=== PATIENT | male | born 1990 | race American Indian/Alaskan Native ===

== ENCOUNTER 2021-02-22 12:44 | Emergency (ER) | payer OTHER ==
[2021-02-22] MEDS ORDERED: LORazepam 2 MG/ML SDV IVPUSH ONE (13:02)
[2021-02-22] MEDS ORDERED: Ondansetron 4 MG/2 ML SDV IVPUSH ONE (13:02)
[2021-02-22] MEDS ORDERED: Sodium Chloride 0.9% 1,000 ML IV SCH (13:15)
--- NOTE | 2021-02-22 14:14 | EDM.PDOC ---
ED HPI GENERAL MEDICAL PROBLEM - General Stated Complaint: POSS HEART ATTACK Time Seen by Provider: 02/22/21 12:50 Source of Information: Reports: Patient History Limitations: Reports: No Limitations - History of Present Illness INITIAL COMMENTS - FREE TEXT/NARRATIVE: Patient presented to the ED because of chest pain, dyspnea,nausea and vomiting since yesterday. He also c/o elvin oral and peripheral numbness and tingling because he was hyperventilating earlier. There is no fever, chills, cough and cold. He has a history of alcohol abuse and has binge drinking 1 liter of hard liquor daily. He also has a history of anxiety and depression but quit taking his buspar and alprazolam. - Related Data Allergies Allergy/AdvReac Type Severity Reaction Status Date / Time No Known Allergies Allergy Verified 02/22/21 12:59 Home Meds: Home Meds Ondansetron [Zofran ODT] 4 mg PO Q4H PRN #10 tab.dis 02/22/21 [Rx] diazePAM [Valium] 10 mg PO DAILY PRN #10 tab 02/22/21 [Rx] ED ROS GENERAL - Review of Systems Review Of Systems: See Below Constitutional: Reports: No Symptoms HEENT: Reports: No Symptoms Respiratory: Reports: Shortness of Breath Cardiovascular: Reports: No Symptoms Endocrine: Reports: No Symptoms GI/Abdominal: Reports: Nausea, Vomiting : Reports: No Symptoms Musculoskeletal: Reports: No Symptoms Skin: Reports: No Symptoms Neurological: Reports: No Symptoms Psychiatric: Reports: No Symptoms ED EXAM, GENERAL - Physical Exam Exam: See Below Exam Limited By: No Limitations General Appearance: Alert, No Apparent Distress Ears: Normal External Exam, Normal Canal, Hearing Grossly Normal, Normal TMs Nose: Normal Inspection, Normal Mucosa, No Blood Throat/Mouth: Normal Inspection, Normal Lips, Normal Teeth, Normal Oropharynx, Normal Voice Head: Atraumatic, Normocephalic Neck: Normal Inspection, Supple, Non-Tender, Full Range of Motion Respiratory/Chest: No Respiratory Distress, Lungs Clear, Normal Breath Sounds, No Accessory Muscle Use, Chest Non-Tender Cardiovascular: Normal Peripheral Pulses, Regular Rate, Rhythm, No Edema, No Gallop, No JVD, No Murmur, No Rub GI/Abdominal: Normal Bowel Sounds, Soft, Non-Tender, No Organomegaly, No Distention, No Abnormal Bruit, No Mass Back Exam: Normal Inspection, Full Range of Motion Extremities: Normal Inspection, Normal Range of Motion, Non-Tender, No Pedal Edema, Normal Capillary Refill Neurological: Alert, Oriented, CN II-XII Intact, Normal Cognition, Normal Gait, No Motor/Sensory Deficits #1 Interpretation EKG Date: 02/22/21 Time: 12:44 Rhythm: Other (sinus tach) Rate (Beats/Min): 117 [place]: Normal P-Wave: Present QRS: Normal ST-T: Normal QT: Normal OR/PQ Interval: 116 Comparison: NA - No Prior EKG EKG Interpretation Comments: Sinus Tach Course - Vital Signs Text/Narrative:: Lab/EKG/CXR result was reviewed and discussed with patient Zofran 4 mg IV x 1 Ativan 1 mg IV x 1 Patient refused to go foe detox, he said he has a son to take care Last Recorded V/S: Last Vital Signs Temp 36.8 C 02/22/21 12:44 Pulse 112 H 02/22/21 12:44 Resp 18 02/22/21 12:44 BP 143/96 H 02/22/21 12:44 Pulse Ox 98 02/22/21 12:44 - Orders/Labs/Meds Orders: Active Orders 24 hr Category Date Time Status Chest 1V Frontal [CR] Stat Exams 02/22/21 13:02 Taken EKG 12 Lead [EK] Routine Ther 02/22/21 13:02 Ordered Labs: Laboratory Tests 02/22/21 02/22/21 02/22/21 Range/Units 13:00 13:00 13:00 WBC 8.2 (3.2-10.1) x10-3/uL RBC 5.84 (3.90-5.90) x10(6)uL Hgb 16.2 (12.9-17.7) g/dL Hct 49.7 (38.3-50.1) % MCV 85.1 (80.8-98.7) fL MCH 27.8 (27.0-33.3) pg MCHC 32.7 (28.7-35.3) g/dL RDW 16.5 H (12.4-15.0) % Plt Count 337 (117-477) x10(3)uL MPV 7.8 (6.7-11.0) fL Neut % (Auto) 56.9 (40.3-71.8) % Lymph % (Auto) 34.2 (15.8-45.3) % Mitchell % (Auto) 4.3 L (5.5-15.2) % Eos % (Auto) 3.5 (0.1-6.8) % Baso % (Auto) 1.1 (0.3-3.8) % Neut # (Auto) 4.6 (1.7-6.9) x10-3/uL Lymph # (Auto) 2.8 (0.5-4.5) x10-3/uL Mitchell # (Auto) 0.4 (0.0-1.2) x10-3/uL Eos # (Auto) 0.3 (0.0-0.6) x10-3/uL Baso # (Auto) 0.1 (0.0-0.3) x10-3/uL Sodium 137 (135-145) mmol/L Potassium 4.3 (3.5-5.3) mmol/L Chloride 99 L (100-110) mmol/L Carbon Dioxide 25 (21-32) mmol/L BUN 16 (7-18) mg/dL Creatinine 1.1 (0.70-1.30) mg/dL Est Cr Clr Drug Dosing TNP Estimated GFR (MDRD) > 60 (>60) BUN/Creatinine Ratio 14.5 (9-20) Glucose 106 (80-116) mg/dL Calcium 8.4 L (8.6-10.2) mg/dL Total Bilirubin 1.1 (0.1-1.3) mg/dL AST 40 H (5-25) IU/L ALT 29 (12-36) U/L Alkaline Phosphatase 106 (56-112) IU/L Troponin I 11.3 (4.0-60.3) pg/mL Total Protein 8.1 H (6.0-8.0) g/dL Albumin 3.8 (3.5-5.2) g/dL Globulin 4.3 g/dL Albumin/Globulin Ratio 0.9 Urine Opiates Screen (NEGATIVE) Ur Buprenorphine Scrn (NEGATIVE) Ur Oxycodone Screen (NEGATIVE) Urine Methadone Screen (NEGATIVE) Ur Propoxyphene Screen (NEGATIVE) Ur Barbiturates Screen (NEGATIVE) Ur Tricyclics Screen (NEGATIVE) Ur Phencyclidine Scrn (NEGATIVE) Ur Amphetamine Screen (NEGATIVE) U Methamphetamines Scrn (NEGATIVE) U Benzodiazepines Scrn (NEGATIVE) U Cocaine Metab Screen (NEGATIVE) U Marijuana (THC) Screen (NEGATIVE) Ethyl Alcohol 0.23 H* (<0.03) % 02/22/21 Range/Units 14:40 WBC (3.2-10.1) x10-3/uL RBC (3.90-5.90) x10(6)uL Hgb (12.9-17.7) g/dL Hct (38.3-50.1) % MCV (80.8-98.7) fL MCH (27.0-33.3) pg MCHC (28.7-35.3) g/dL RDW (12.4-15.0) % Plt Count (117-477) x10(3)uL MPV (6.7-11.0) fL Neut % (Auto) (40.3-71.8) % Lymph % (Auto) (15.8-45.3) % Mitchell % (Auto) (5.5-15.2) % Eos % (Auto) (0.1-6.8) % Baso % (Auto) (0.3-3.8) % Neut # (Auto) (1.7-6.9) x10-3/uL Lymph # (Auto) (0.5-4.5) x10-3/uL Mitchell # (Auto) (0.0-1.2) x10-3/uL Eos # (Auto) (0.0-0.6) x10-3/uL Baso # (Auto) (0.0-0.3) x10-3/uL Sodium (135-145) mmol/L Potassium (3.5-5.3) mmol/L Chloride (100-110) mmol/L Carbon Dioxide (21-32) mmol/L BUN (7-18) mg/dL Creatinine (0.70-1.30) mg/dL Est Cr Clr Drug Dosing Estimated GFR (MDRD) (>60) BUN/Creatinine Ratio (9-20) Glucose (80-116) mg/dL Calcium (8.6-10.2) mg/dL Total Bilirubin (0.1-1.3) mg/dL AST (5-25) IU/L ALT (12-36) U/L Alkaline Phosphatase (56-112) IU/L Troponin I (4.0-60.3) pg/mL Total Protein (6.0-8.0) g/dL Albumin (3.5-5.2) g/dL Globulin g/dL Albumin/Globulin Ratio Urine Opiates Screen Positive H (NEGATIVE) Ur Buprenorphine Scrn Negative (NEGATIVE) Ur Oxycodone Screen Negative (NEGATIVE) Urine Methadone Screen Negative (NEGATIVE) Ur Propoxyphene Screen Negative (NEGATIVE) Ur Barbiturates Screen Negative (NEGATIVE) Ur Tricyclics Screen Negative (NEGATIVE) Ur Phencyclidine Scrn Negative (NEGATIVE) Ur Amphetamine Screen Negative (NEGATIVE) U Methamphetamines Scrn Positive H (NEGATIVE) U Benzodiazepines Scrn Negative (NEGATIVE) U Cocaine Metab Screen Negative (NEGATIVE) U Marijuana (THC) Screen Negative (NEGATIVE) Ethyl Alcohol (<0.03) % Meds: Medications Discontinued Medications Generic Name Dose Route Start Last Admin Trade Name Freq PRN Reason Stop Dose Admin Sodium Chloride 1,000 mls @ 999 mls/hr 02/22/21 13:15 02/22/21 13:10 Normal Saline IV 999 mls/hr ASDIRECTED LINA Administration Lorazepam 1 mg 02/22/21 13:02 02/22/21 13:14 Lorazepam 2 Mg/Ml Sdv IVPUSH 02/22/21 13:03 1 mg ONETIME ONE Administration Ondansetron HCl 4 mg 02/22/21 13:02 02/22/21 13:14 Ondansetron 4 Mg/2 Ml Sdv IVPUSH 02/22/21 13:03 4 mg ONETIME ONE Administration Departure - Departure Time of Disposition: 14:15 Disposition: Home, Self-Care 01 Condition: Good Clinical Impression: Alcohol intoxication, Alcohol abuse, Polysubstance abuse - Discharge Information Prescriptions: diazePAM [Valium] 10 mg PO DAILY PRN #10 tab PRN Reason: anxiety/agitation Ondansetron [Zofran ODT] 4 mg PO Q4H PRN #10 tab.dis PRN Reason: Nausea Instructions: Alcohol Use Disorder, Alcohol Intoxication, [id number] Referrals: PCP,Not In Area [Primary Care Provider] - Forms: ED Department Discharge Additional Instructions: Please read discharge instructions on alcohol abuse and alcohol intoxication Drink in moderation Take 1 multivitamin daily Take valium 10 mg when you feel like withdrawing: if you're anxious, agitated, having nausea, vomiting, hallucination Zofran 4mg ODT ever 4 hours as needed for nausea You can go directly to [facility]: [address], [place] Sepsis Event Note (ED) - Evaluation Sepsis Screening Result: No Definite Risk - Focused Exam Vital Signs: Vital Signs Temp Pulse Resp BP Pulse Ox 02/22/21 12:44 36.8 C 112 H 18 143/96 H 98 - My Orders Last 24 Hours: My Active Orders 02/22/21 13:02 Chest 1V Frontal [CR] Stat EKG 12 Lead [EK] Routine - Assessment/Plan Last 24 Hours: My Active Orders 02/22/21 13:02 Chest 1V Frontal [CR] Stat EKG 12 Lead [EK] Routine
--- NOTE | 2021-02-23 12:46 | CR ---
CHEST ONE VIEW INDICATION: Shortness of breath. FINDINGS: Two AP portable upright views of the chest were obtained 02/22/21 - no comparisons. Overlying EKG leads are noted. Heart did not appear enlarged. Moderate dextroconvex scoliosis of the mid thoracic spine is noted. A definite active infiltrate or effusion was not identified. IMPRESSION: No acute process. MTDD
== END 2021-02-22 14:40 | disposition home or self-care (01) ==
LOC: FB.ED 12:44
DX: F10.129 Alcohol abuse with intoxication, unspecified (principal); R00.0 Tachycardia, unspecified; Y90.0 Blood alcohol level of less than 20 mg/100 ml
CPT/HCPCS: 36415; 71045; 80053; 80307; 84484; 85025; 93005; 96374; 96375; 99285; J2060; J2405; J7030

== ENCOUNTER 2021-02-25 00:48 | Emergency (ER) | payer OTHER ==
[2021-02-25] MEDS: Diazepam 5 MG Tab PO STA (01:22)
--- NOTE | 2021-02-25 01:48 | EDM.PDOCBH ---
ED HPI GENERAL MEDICAL PROBLEM - General Stated Complaint: ANXITEY Time Seen by Provider: 02/25/21 00:55 Source of Information: Reports: Patient History Limitations: Reports: No Limitations - History of Present Illness INITIAL COMMENTS - FREE TEXT/NARRATIVE: Patient presented to the ED because of alcohol intoxication. He was drinking all night because he found out that his missing sister in [place] was found . He was seen a day ago due to alcohol intoxication and his drug screen was positive fo meth,opiates and THC. He was advised to go to detox which he refused because he has to take care of his son. He arrived in the ED AAO X3 with GCS of 15. - Related Data Allergies Allergy/AdvReac Type Severity Reaction Status Date / Time No Known Allergies Allergy Verified 02/22/21 12:59 Home Meds: Home Meds Ondansetron [Zofran ODT] 4 mg PO Q4H PRN #10 tab.dis 02/22/21 [Rx] diazePAM [Valium] 10 mg PO DAILY PRN #10 tab 02/22/21 [Rx] hydrOXYzine pamoate [Vistaril] 50 mg PO Q6H PRN #30 cap 02/25/21 [Rx] Past Medical History Psychiatric History: Reports: Addiction - Infectious Disease History Infectious Disease History: Reports: None Social & Family History - Family History Family Medical History: No Pertinent Family History - Caffeine Use Caffeine Use: Reports: Soda ED ROS GENERAL - Review of Systems Review Of Systems: See Below Constitutional: Reports: No Symptoms HEENT: Reports: No Symptoms Respiratory: Reports: No Symptoms Cardiovascular: Reports: No Symptoms Endocrine: Reports: No Symptoms GI/Abdominal: Reports: No Symptoms : Reports: No Symptoms Musculoskeletal: Reports: No Symptoms Skin: Reports: No Symptoms Neurological: Reports: No Symptoms Psychiatric: Reports: Anxiety ED EXAM, BEHAVIORAL HEALTH - Physical Exam Exam: See Below Exam Limited By: No Limitations General Appearance: Alert, No Apparent Distress Ears: Normal External Exam, Normal Canal, Hearing Grossly Normal, Normal TMs Nose: Normal Inspection, Normal Mucosa, No Blood Throat/Mouth: Normal Inspection, Normal Lips, Normal Teeth, Normal Gums, Normal Oropharynx, Normal Voice Head: Atraumatic, Normocephalic Neck: Normal Inspection, Supple, Non-Tender, Full Range of Motion Respiratory/Chest: No Respiratory Distress, Lungs Clear, Normal Breath Sounds, No Accessory Muscle Use, Chest Non-Tender Cardiovascular: Normal Peripheral Pulses, Regular Rate, Rhythm, No Edema, No Gallop, No JVD, No Murmur, No Rub GI/Abdominal: Normal Bowel Sounds, Soft, Non-Tender, No Organomegaly, No Distention, No Abnormal Bruit Back Exam: Normal Inspection, Full Range of Motion Extremities: Normal Inspection, Normal Range of Motion, Non-Tender, No Pedal Edema, Normal Capillary Refill Neurological: Alert, Normal Mood/Affect, CN II-XII Intact, Normal Cognition, Normal Gait, Normal Reflexes, No Motor/Sensory Deficits COURSE, BEHAVIORAL HEALTH COMP - Course Vital Signs: Valium 10 mg PO x1 for his anxiety Lab work up was not done Orders, Labs, Meds: Medications Discontinued Medications Generic Name Dose Route Start Last Admin Trade Name Freq PRN Reason Stop Dose Admin Diazepam 10 mg 02/25/21 01:16 02/25/21 01:22 Diazepam 5 Mg Tab PO 02/25/21 01:17 10 mg NOW STA Administration Departure - Departure Time of Disposition: 01:45 Disposition: Home, Self-Care 01 Condition: Good Clinical Impression: Alcohol intoxication, Polysubstance abuse, Alcohol abuse, Grieving - Discharge Information Prescriptions: hydrOXYzine pamoate [Vistaril] 50 mg PO Q6H PRN #30 cap PRN Reason: anxiety/sleep Instructions: Alcohol Use Disorder, Substance Use Disorder, Alcohol Intoxication, [id number], Helping Your Child Manage Loss Referrals: PCP,Not In Area [Primary Care Provider] - Additional Instructions: Please read discharge instructions in grieving Take vistaril 50 mg every 6 hours as needed for anxiety/sleep Follow up as needed
== END 2021-02-25 01:50 | disposition home or self-care (01) ==
LOC: FB.ED 00:48
DX: F10.129 Alcohol abuse with intoxication, unspecified (principal); F43.21 Adjustment disorder with depressed mood; F19.10 Other psychoactive substance abuse, uncomplicated
CPT/HCPCS: 99284; A9270

== ENCOUNTER 2021-03-11 16:33 | Emergency (ER) | payer OTHER ==
[2021-03-11] MEDS ORDERED: Sodium Chloride 0.9% 10 ML Syringe FLUSH PRN (16:35)
[2021-03-11] MEDS ORDERED: Prochlorperazine 10 MG in Sodium Chloride 0.9% 50 ML IV STA (16:35)
[2021-03-11] MEDS ORDERED: LORazepam 2 MG/ML SDV IVPUSH STA (16:35)
[2021-03-11] MEDS ORDERED: Sodium Chloride 0.9% 1,000 ML IV SCH ×2 (16:45→18:15)
--- NOTE | 2021-03-11 18:02 | EDM.PDOC ---
ED HPI GENERAL MEDICAL PROBLEM - General Chief Complaint: Drug or Alcohol Abuse Stated Complaint: Nausea and vomiting Time Seen by Provider: 03/11/21 16:35 Source of Information: Reports: Patient History Limitations: Reports: No Limitations - History of Present Illness INITIAL COMMENTS - FREE TEXT/NARRATIVE: Patient is a 30 YO M who presented to the ED because of persistent nausea and vomiting. He has been drinking hard liquor since 02/26/21 when he find out that his sister in [place]. He also has a history of Meth and Marijuana use. Today he is anxious, agitated, and is persistently vomiting. There is no abdominal pain,no fever, chills, cough and cold. His last drink was this morning and he denies having any seizure or DT' related to alcohol intoxication or withdrawal. Headache Pain Score (Numeric/FACES): 2 - Related Data Allergies Allergy/AdvReac Type Severity Reaction Status Date / Time No Known Allergies Allergy Verified 03/11/21 19:15 Home Meds: Home Meds Ondansetron [Zofran ODT] 4 mg PO Q4H PRN #10 tab.dis 02/22/21 [Rx] diazePAM [Valium] 10 mg PO DAILY PRN #10 tab 02/22/21 [Rx] hydrOXYzine pamoate [Vistaril] 50 mg PO Q6H PRN #30 cap 02/25/21 [Rx] .Buspar 1 dose PO ASDIRECTED 03/11/21 [History] .Lorazepam 1 dose PO ASDIRECTED 03/11/21 [History] Prochlorperazine Maleate [Compazine] 10 mg PO Q8H PRN #30 tablet 03/12/21 [Rx] diazePAM [Valium] 10 mg PO Q8H PRN #10 tablet 03/12/21 [Rx] Past Medical History Psychiatric History: Reports: Addiction, Anxiety - Infectious Disease History Infectious Disease History: Reports: None Social & Family History - Family History Family Medical History: No Pertinent Family History - Caffeine Use Caffeine Use: Reports: Energy Drinks, Soda ED ROS GENERAL - Review of Systems Review Of Systems: See Below Constitutional: Reports: No Symptoms HEENT: Reports: No Symptoms Respiratory: Reports: No Symptoms Cardiovascular: Reports: No Symptoms Endocrine: Reports: No Symptoms GI/Abdominal: Reports: Nausea, Vomiting : Reports: No Symptoms Musculoskeletal: Reports: No Symptoms Skin: Reports: No Symptoms Neurological: Reports: No Symptoms Psychiatric: Reports: No Symptoms Hematologic/Lymphatic: Reports: No Symptoms ED EXAM, GENERAL - Physical Exam Exam: See Below Exam Limited By: No Limitations General Appearance: Alert, No Apparent Distress Eye Exam: Bilateral Eye: PERRL Ears: Normal External Exam, Normal Canal Nose: Normal Inspection, Normal Mucosa, No Blood Throat/Mouth: Normal Inspection, Normal Lips, Normal Teeth Head: Atraumatic, Normocephalic Neck: Normal Inspection, Supple, Non-Tender, Full Range of Motion Respiratory/Chest: No Respiratory Distress, Lungs Clear, Normal Breath Sounds, No Accessory Muscle Use, Chest Non-Tender Cardiovascular: Normal Peripheral Pulses, Regular Rate, Rhythm, No Edema, No Gallop, No JVD, No Murmur GI/Abdominal: Normal Bowel Sounds, Soft, Non-Tender, No Organomegaly, No Distention, No Abnormal Bruit Back Exam: Normal Inspection, Full Range of Motion Extremities: Normal Inspection, Normal Range of Motion, Non-Tender, No Pedal Edema, Normal Capillary Refill Neurological: Alert, Oriented, CN II-XII Intact, Normal Cognition, Normal Reflexes Psychiatric: Normal Affect Course - Vital Signs Text/Narrative:: Lab/CXR result was reviewed and discussed with patient NS 1 L bolus CIWA Protocol Mr Zheng chsnged his decisin to go to detox and just want to go home Last Recorded V/S: Last Vital Signs Temp 37.4 C 03/12/21 01:00 Pulse 105 H 03/12/21 01:00 Resp 20 03/12/21 01:00 BP 137/91 H 03/12/21 01:00 Pulse Ox 99 03/12/21 01:00 - Orders/Labs/Meds Orders: Active Orders 24 hr Category Date Time Status Chest 1V Frontal [CR] Stat Exams 03/11/21 17:00 Taken LORazepam [Ativan] Med 03/12/21 01:15 Active See Protocol IV ASDIRECTED Prochlorperazine [Compazine] Med 03/12/21 01:09 Active 10 mg IVPUSH Q6H PRN Sodium Chloride 0.9% [Normal Saline] 1,000 ml Med 03/11/21 16:45 Active IV ASDIRECTED Sodium Chloride 0.9% [Normal Saline] 1,000 ml Med 03/11/21 18:15 Active IV ASDIRECTED Sodium Chloride 0.9% [Saline Flush] Med 03/11/21 16:35 Active 10 ml FLUSH ASDIRECTED PRN Saline Lock Insert [OM.PC] Routine Oth 03/11/21 16:35 Ordered Medication Orders Sodium Chloride (Normal Saline) 1,000 mls @ 999 mls/hr IV ASDIRECTED LINA Last Admin: 03/11/21 16:50 Dose: 999 mls/hr Documented by: RUBENSNLLACIE Sodium Chloride (Normal Saline) 1,000 mls @ 999 mls/hr IV ASDIRECTED LINA Last Admin: 03/11/21 18:36 Dose: 999 mls/hr Documented by: HUMBERTO Lorazepam (Lorazepam 2 Mg/Ml Sdv) 0 mg IV ASDIRECTED LINA; Protocol Last Admin: 03/12/21 01:25 Dose: 1 mg Documented by: BIANKA Prochlorperazine Edisylate (Prochlorperazine 10 Mg/2 Ml Sdv) 10 mg IVPUSH Q6H PRN PRN Reason: Nausea/Vomiting Last Admin: 03/12/21 01:19 Dose: 10 mg Documented by: BIANKA Sodium Chloride (Sodium Chloride 0.9% 10 Ml Syringe) 10 ml FLUSH ASDIRECTED PRN PRN Reason: Keep Vein Open Last Admin: 03/12/21 01:26 Dose: 10 ml Documented by: BIANKA Labs: Laboratory Tests 03/11/21 03/11/21 03/11/21 Range/Units 16:45 16:45 16:45 WBC 5.7 (3.2-10.1) x10-3/uL RBC 5.17 (3.90-5.90) x10(6)uL Hgb 15.1 (12.9-17.7) g/dL Hct 45.6 (38.3-50.1) % MCV 88.2 (80.8-98.7) fL MCH 29.3 (27.0-33.3) pg MCHC 33.2 (28.7-35.3) g/dL RDW 20.1 H (12.4-15.0) % Plt Count 282 (117-477) x10(3)uL MPV 7.7 (6.7-11.0) fL Neut % (Auto) 59.4 (40.3-71.8) % Lymph % (Auto) 28.3 (15.8-45.3) % [place] % (Auto) 6.1 (5.5-15.2) % Eos % (Auto) 5.4 (0.1-6.8) % Baso % (Auto) 0.8 (0.3-3.8) % Neut # (Auto) 3.4 (1.7-6.9) x10-3/uL Lymph # (Auto) 1.6 (0.5-4.5) x10-3/uL [place] # (Auto) 0.4 (0.0-1.2) x10-3/uL Eos # (Auto) 0.3 (0.0-0.6) x10-3/uL Baso # (Auto) 0.0 (0.0-0.3) x10-3/uL Sodium 144 (135-145) mmol/L Potassium 4.1 (3.5-5.3) mmol/L Chloride 105 D (100-110) mmol/L Carbon Dioxide 24 (21-32) mmol/L BUN 19 H (7-18) mg/dL Creatinine 1.0 (0.70-1.30) mg/dL Est Cr Clr Drug Dosing TNP Estimated GFR (MDRD) > 60 (>60) BUN/Creatinine Ratio 19.0 (9-20) Glucose 105 (80-116) mg/dL Calcium 8.2 L (8.6-10.2) mg/dL Total Bilirubin 1.0 (0.1-1.3) mg/dL AST 66 H D (5-25) IU/L ALT 43 H D (12-36) U/L Alkaline Phosphatase 78 (56-112) IU/L Total Protein 7.8 (6.0-8.0) g/dL Albumin 3.8 (3.5-5.2) g/dL Globulin 4.0 g/dL Albumin/Globulin Ratio 1.0 Amylase 152 H (25-115) U/L Lipase 747 H (73-393) U/L Urine Opiates Screen (NEGATIVE) Ur Buprenorphine Scrn (NEGATIVE) Ur Oxycodone Screen (NEGATIVE) Urine Methadone Screen (NEGATIVE) Ur Propoxyphene Screen (NEGATIVE) Ur Barbiturates Screen (NEGATIVE) Ur Tricyclics Screen (NEGATIVE) Ur Phencyclidine Scrn (NEGATIVE) Ur Amphetamine Screen (NEGATIVE) U Methamphetamines Scrn (NEGATIVE) U Benzodiazepines Scrn (NEGATIVE) U Cocaine Metab Screen (NEGATIVE) U Marijuana (THC) Screen (NEGATIVE) Ethyl Alcohol 0.26 H* (<0.03) % SARS-CoV-2 RNA (CASS) (NEGATIVE) 03/11/21 03/11/21 Range/Units 17:10 18:00 WBC (3.2-10.1) x10-3/uL RBC (3.90-5.90) x10(6)uL Hgb (12.9-17.7) g/dL Hct (38.3-50.1) % MCV (80.8-98.7) fL MCH (27.0-33.3) pg MCHC (28.7-35.3) g/dL RDW (12.4-15.0) % Plt Count (117-477) x10(3)uL MPV (6.7-11.0) fL Neut % (Auto) (40.3-71.8) % Lymph % (Auto) (15.8-45.3) % [place] % (Auto) (5.5-15.2) % Eos % (Auto) (0.1-6.8) % Baso % (Auto) (0.3-3.8) % Neut # (Auto) (1.7-6.9) x10-3/uL Lymph # (Auto) (0.5-4.5) x10-3/uL [place] # (Auto) (0.0-1.2) x10-3/uL Eos # (Auto) (0.0-0.6) x10-3/uL Baso # (Auto) (0.0-0.3) x10-3/uL Sodium (135-145) mmol/L Potassium (3.5-5.3) mmol/L Chloride (100-110) mmol/L Carbon Dioxide (21-32) mmol/L BUN (7-18) mg/dL Creatinine (0.70-1.30) mg/dL Est Cr Clr Drug Dosing Estimated GFR (MDRD) (>60) BUN/Creatinine Ratio (9-20) Glucose (80-116) mg/dL Calcium (8.6-10.2) mg/dL Total Bilirubin (0.1-1.3) mg/dL AST (5-25) IU/L ALT (12-36) U/L Alkaline Phosphatase (56-112) IU/L Total Protein (6.0-8.0) g/dL Albumin (3.5-5.2) g/dL Globulin g/dL Albumin/Globulin Ratio Amylase (25-115) U/L Lipase (73-393) U/L Urine Opiates Screen Negative (NEGATIVE) Ur Buprenorphine Scrn Negative (NEGATIVE) Ur Oxycodone Screen Negative (NEGATIVE) Urine Methadone Screen Negative (NEGATIVE) Ur Propoxyphene Screen Negative (NEGATIVE) Ur Barbiturates Screen Negative (NEGATIVE) Ur Tricyclics Screen Negative (NEGATIVE) Ur Phencyclidine Scrn Negative (NEGATIVE) Ur Amphetamine Screen Negative (NEGATIVE) U Methamphetamines Scrn Negative (NEGATIVE) U Benzodiazepines Scrn Positive H (NEGATIVE) U Cocaine Metab Screen Negative (NEGATIVE) U Marijuana (THC) Screen Positive H (NEGATIVE) Ethyl Alcohol (<0.03) % SARS-CoV-2 RNA (CASS) Negative (NEGATIVE) Meds: Medications Generic Name Dose Route Start Last Admin Trade Name Freq PRN Reason Stop Dose Admin Sodium Chloride 1,000 mls @ 999 mls/hr 03/11/21 16:45 03/11/21 16:50 Normal Saline IV 999 mls/hr ASDIRECTED LINA Administration Sodium Chloride 1,000 mls @ 999 mls/hr 03/11/21 18:15 03/11/21 18:36 Normal Saline IV 999 mls/hr ASDIRECTED LINA Administration Lorazepam 0 mg 03/12/21 01:15 03/12/21 01:25 Lorazepam 2 Mg/Ml Sdv IV 1 mg ASDIRECTED LINA Administration Protocol Prochlorperazine Edisylate 10 mg 03/12/21 01:09 03/12/21 01:19 Prochlorperazine 10 Mg/2 Ml Sdv IVPUSH 10 mg Q6H PRN Administration Nausea/Vomiting Sodium Chloride 10 ml 03/11/21 16:35 03/12/21 01:26 Sodium Chloride 0.9% 10 Ml Syringe FLUSH 10 ml ASDIRECTED PRN Administration Keep Vein Open Discontinued Medications Generic Name Dose Route Start Last Admin Trade Name Freq PRN Reason Stop Dose Admin Prochlorperazine Edisylate 10 52 mls @ 150 mls/hr 03/11/21 16:35 03/11/21 17:04 mg/ Sodium Chloride IV 03/11/21 16:55 150 mls/hr NOW STA Administration Thiamine HCl 100 mg/ Sodium 101 mls @ 202 mls/hr 03/11/21 18:03 03/11/21 18:07 Chloride IV 03/11/21 18:04 202 mls/hr ONETIME ONE Administration Lorazepam 2 mg 03/11/21 16:35 03/11/21 17:01 Lorazepam 2 Mg/Ml Sdv IVPUSH 03/11/21 16:36 2 mg NOW STA Administration Lorazepam Confirm 03/12/21 12:05 03/12/21 12:07 Lorazepam 1 Mg Tab Administered 03/12/21 12:06 Not Given Dose 1 mg .ROUTE .STK-MED ONE Lorazepam 1 mg 03/12/21 12:06 03/12/21 12:07 Lorazepam 1 Mg Tab PO 03/12/21 12:07 1 mg ONETIME ONE Administration Departure - Departure Time of Disposition: 18:00 Disposition: Home, Self-Care 01 Condition: Good Clinical Impression: Alcoholism, Alcohol intoxication, Polysubstance abuse, Alcohol withdrawal - Discharge Information Prescriptions: Prochlorperazine Maleate [Compazine] 10 mg PO Q8H PRN #30 tablet PRN Reason: Nausea diazePAM [Valium] 10 mg PO Q8H PRN #10 tablet PRN Reason: anxiety/agitation Instructions: Alcohol Use Disorder, Alcohol Withdrawal Syndrome, Substance Use Disorder Referrals: PCP,Not In Area [Primary Care Provider] - Forms: ED Department Discharge Additional Instructions: Please read discharge instructions on alcohol and substance abuse disorder Drink in moderation Quit using street drugs Valium 10 mg every 8 hours as needed when you can't control you anxiety and agitation Compazine 10 mg every 8 hours as needed for nausea/vomiting Follow up with your doctor for an outpatient treatment. - My Orders Last 24 Hours: My Active Orders 03/11/21 16:35 Sodium Chloride 0.9% [Saline Flush] 10 ml FLUSH ASDIRECTED PRN Saline Lock Insert [OM.PC] Routine 03/11/21 16:45 Sodium Chloride 0.9% [Normal Saline] 1,000 ml IV ASDIRECTED 03/11/21 17:00 Chest 1V Frontal [CR] Stat 03/11/21 18:15 Sodium Chloride 0.9% [Normal Saline] 1,000 ml IV ASDIRECTED 03/12/21 01:09 Prochlorperazine [Compazine] 10 mg IVPUSH Q6H PRN 03/12/21 01:15 LORazepam [Ativan] See Protocol IV ASDIRECTED - Assessment/Plan Last 24 Hours: My Active Orders 03/11/21 16:35 Sodium Chloride 0.9% [Saline Flush] 10 ml FLUSH ASDIRECTED PRN Saline Lock Insert [OM.PC] Routine 03/11/21 16:45 Sodium Chloride 0.9% [Normal Saline] 1,000 ml IV ASDIRECTED 03/11/21 17:00 Chest 1V Frontal [CR] Stat 03/11/21 18:15 Sodium Chloride 0.9% [Normal Saline] 1,000 ml IV ASDIRECTED 03/12/21 01:09 Prochlorperazine [Compazine] 10 mg IVPUSH Q6H PRN 03/12/21 01:15 LORazepam [Ativan] See Protocol IV ASDIRECTED
[2021-03-11] MEDS ORDERED: Thiamine 100 MG in Sodium Chloride 0.9% 100 ML IV ONE (18:03)
[2021-03-12] MEDS ORDERED: Prochlorperazine 10 MG/2 ML SDV IVPUSH PRN (01:09)
[2021-03-12] MEDS ORDERED: LORazepam 2 MG/ML SDV IV SCH (01:15)
[2021-03-12] MEDS ORDERED: LORazepam 1 MG Tab ONE (12:05)
[2021-03-12] MEDS ORDERED: LORazepam 1 MG Tab PO ONE (12:06)
== END 2021-03-12 15:10 | disposition home or self-care (01) ==
LOC: FB.ED 16:33
DX: F10.239 Alcohol dependence with withdrawal, unspecified (principal); F10.229 Alcohol dependence with intoxication, unspecified; F19.10 Other psychoactive substance abuse, uncomplicated; Z20.822 Contact with and (suspected) exposure to COVID-19; Y90.0 Blood alcohol level of less than 20 mg/100 ml
CPT/HCPCS: 36415; 71045; 80053; 80307; 82150; 83690; 85025; 87635; 99284; A9270; J0780; J2060; J3411; J7030; U0002

== ENCOUNTER 2021-12-26 19:40 | Emergency (ER) | payer BC, MEDICAID ==
[2021-12-26] MEDS ORDERED: Thiamine 100 MG Tab PO ONE (20:11)
[2021-12-26] MEDS ORDERED: Prochlorperazine 10 MG/2 ML SDV IM ONE (20:11)
[2021-12-26] MEDS ORDERED: Ketorolac 30 MG/ML SDV IM ONE (20:11)
[2021-12-26 20:13] LABS: ESTIMATED GFR 102 mL/min (>60)
[2021-12-26] MEDS ORDERED: NS + KCl 20mEq/L 1,000 ML IV SCH (20:30)
[2021-12-26] MEDS ORDERED: Ondansetron 4 MG Tab.DIS PO ONE ×2 (21:49→21:50)
[2021-12-26] MEDS ORDERED: Ondansetron 4 MG Tab.DIS ONE (21:50)
== END 2021-12-26 22:45 | disposition home or self-care (01) ==
LOC: FB.ED 19:40
DX: K70.10 Alcoholic hepatitis without ascites (principal); F10.929 Alcohol use, unspecified with intoxication, unspecified; R06.4 Hyperventilation; F15.90 Other stimulant use, unspecified, uncomplicated; Y90.8 Blood alcohol level of 240 mg/100 ml or more; F41.9 Anxiety disorder, unspecified; Z79.899 Other long term (current) drug therapy
CPT/HCPCS: 36415; 80053; 80307; 81001; 82550; 83605; 83735; 85027; 87635; 96372; 96374; 99284; A9270; J0780; J1885; J3480; Q0162; U0002

== ENCOUNTER 2021-12-27 00:38 | Emergency (ER) | payer BC, MEDICAID ==
[2021-12-27] MEDS ORDERED: Lidocaine 4% 1 each Patch TOP SCH (01:00)
[2021-12-27] MEDS ORDERED: LORazepam 0.5 MG Tab PO ONE (02:02)
== END 2021-12-27 12:15 | disposition home or self-care (01) ==
LOC: FB.ED 00:38
DX: F10.929 Alcohol use, unspecified with intoxication, unspecified (principal); Y90.0 Blood alcohol level of less than 20 mg/100 ml
CPT/HCPCS: 36415; 80307; 93005; 99285; A9270

== ENCOUNTER 2022-09-11 01:10 | Emergency (ER) | payer SELFPAY ==
[2022-09-11] MEDS ORDERED: LORazepam 2 MG/ML SDV IM ONE (01:38)
[2022-09-11] MEDS ORDERED: Ondansetron 4 MG Tab.DIS PO STA (01:41)
[2022-09-11] MEDS ORDERED: hydrOXYzine HCl 50 MG/ML SDV IM ONE (02:03)
[2022-09-11 02:12] LABS: HEMATOCRIT 53.8 % (38.3-50.1); HEMOGLOBIN 18.6 g/dL (12.9-17.7); MEAN CORPUSCULAR HEMOGLOBIN 31.5 pg (27.0-33.3); MEAN CORPUSCULAR HGB CONC 34.6 g/dL (28.7-35.3); MEAN PLATELET VOLUME 9.7 fL (6.7-11.0); PLATELET COUNT,PLT 388 x10(3)uL (117-477); RED BLOOD CELL COUNT 5.91 x10(6)uL (3.90-5.90); RED CELL DISTRIBUTION WIDTH 13.7 % (12.4-15.0); WHITE BLOOD CELL COUNT,WBC 19.7 x10-3/uL (3.2-10.1)
[2022-09-11 02:15] LABS: BLOOD UREA NITROGEN,BUN 21 mg/dL (7-18); CALCIUM 8.6 mg/dL (8.6-10.2); CARBON DIOXIDE,CO2 19 mmol/L (21-32); CHLORIDE,CL 94 mmol/L (100-110); CREATININE 1.5 mg/dL (0.70-1.30); ESTIMATED GFR 62 mL/min (>60); GLUCOSE RANDOM 135 mg/dL (80-116); POTASSIUM,K 3.7 mmol/L (3.5-5.3); SODIUM,NA 138 mmol/L (135-145)
[2022-09-11 02:25] LABS: A/G RATIO 1.2; ALANINE AMINOTRANSFERASE,ALT 126 U/L (12-36); ALBUMIN 4.3 g/dL (3.5-5.2); ALKALINE PHOSPHATASE 107 IU/L (56-112); BILIRUBIN TOTAL 1.3 mg/dL (0.1-1.3); PROTEIN TOTAL,TP 7.9 g/dL (6.0-8.0)
[2022-09-11 02:27] LABS: ASPARTATE AMNIOTRANSFERASE,AST 230 IU/L (5-25)
[2022-09-11 02:34] LABS: LYMPHOCYTES PERCENT MAN 8 % (13-37); MONOCYTES PERCENT MAN 4 % (4-12); SEG NEUTROPHILS PERCENT MAN 88 % (46-82)
[2022-09-11] MEDS ORDERED: Sodium Chloride 0.9% 2,000 ML IV ONE (02:58)
[2022-09-11] MEDS ORDERED: Sodium Chloride 0.9% 10 ML Syringe FLUSH PRN (02:58)
[2022-09-11] MEDS ORDERED: LORazepam 2 MG/ML SDV IVPUSH ONE (04:21)
[2022-09-11] MEDS ORDERED: Prochlorperazine 10 MG in Sodium Chloride 0.9% 50 ML IV ONE (04:21)
[2022-09-11] MEDS ORDERED: Pantoprazole 40 MG Vial IVPUSH ONE (04:22)
== END 2022-09-11 06:30 | disposition home or self-care (01) ==
LOC: FB.ED 01:10
DX: F10.129 Alcohol abuse with intoxication, unspecified (principal); K70.9 Alcoholic liver disease, unspecified; F10.20 Alcohol dependence, uncomplicated; F17.210 Nicotine dependence, cigarettes, uncomplicated; R07.89 Other chest pain; Y90.0 Blood alcohol level of less than 20 mg/100 ml
CPT/HCPCS: 36415; 80053; 80307; 84484; 85025; 93005; 93010; 96361; 96372; 96374; 96375; 99283; 99285-25; C9113; J0780; J2060; J3410; J3490; J7030; Q0162